=== PATIENT | female | born 1950 ===

== ENCOUNTER 2020-12-28 09:35 | Outpatient (CLI) | payer OTHER | END 2020-12-28 09:42 | disposition home or self-care (01) | LOC: RAD 09:35 | PROVIDERS: ATTEND Physical Medicine & Rehabilitation | DX: M54.2 Cervicalgia (principal); M48.8X2 Other specified spondylopathies, cervical region ==

== ENCOUNTER 2021-08-10 07:00 | Outpatient (CLI) | payer OTHER | END 2021-08-10 08:00 | disposition home or self-care (01) | LOC: PPH VACUNA 07:00 | PROVIDERS: ATTEND Emergency Medicine Pediatric Emergency Medicine | DX: Z23 Encounter for immunization (principal) ==